=== PATIENT | female | born 1970 | race Caucasian/White ===

== ENCOUNTER 2016-09-01 06:10 | Emergency (ER) | payer OTHER ==
[2016-09-01 06:23] VITALS: BP 155/87
--- NOTE | 2016-09-01 06:36 | ERNOTE ---
Lower Extremity HPI - General Time Seen by Provider: 09/01/16 06:32 Source: patient - Immun/Allergies/Home Medications Immunizations: IMMUNIZATION HX Immunizations Up to Date Yes History of Influenza Vaccine Yes Hx Pneumococcal Vaccination No Allergies/Adverse Reactions: Allergies Allergy/AdvReac Type Severity Reaction Status Date / Time amoxicillin [Amoxicillin] Allergy Mild Hives Verified 09/01/16 06:23 acetaminophen [From Percocet] AdvReac Mild Itching Verified 09/01/16 06:23 oxycodone [From Percocet] AdvReac Mild Itching Verified 09/01/16 06:23 Home Medications: HOME MEDICATIONS Drospir/Eth Estra/Levomefol Ca [Beyaz 28 Tablet] 1 each PO DAILY 01/20/13 [Last Taken Unknown] Gabapentin [Neurontin] 300 mg PO TID 01/20/13 [Last Taken Unknown] Multivitamin [Multiple Vitamins] 1 each PO DAILY 01/20/13 [Last Taken Unknown] Pramipexole Di-HCl [Mirapex] 0.5 mg PO TID 01/20/13 [Last Taken Unknown] Fexofenadine/Pseudoephedrine [[place]-D 24 Hour Tablet] 1 each PO DAILY [Last Taken Unknown] - History of Present Illness Narrative: pt come in for pain in back of right knee/calf for one week. 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 The d- dimer came back today at 0.75 which is positive Review of Systems - Review of Systems Constitutional: Present: no symptoms reported EYE: Present: no symptoms reported ENT: Present: no symptoms reported Respiratory: Present: no symptoms reported Cardiology: Present: no symptoms reported Musculoskeletal: Present: See HPI - Patient's Past Medical History Patient History - Medical: No pertinent hx Patient History - Cardiac/Respiratory: No pertinent hx Patient History - Cancer: No Hx of Cancer Patient History - Surgical Procedures: Cholecystectomy, Other Patient History - Other: None LMP (females 10-50): 1 month - Social History Living Situations: home Abuse History: No History of abuse Psych History: No pertinent hx Smoking Status: Never smoker Alcohol Use: occasionally Drug Use: none - Immunizations Immunizations Up to Date: Yes Hx Pneumococcal Vaccination: No History of Influenza Vaccine: Yes Physical Exam - Physical Exam General Appearance: Present: wd/wn, alert, no apparent distress Respiratory: Present: no respiratory distress, normal breath sounds, no accessory muscle use, chest nontender, lungs clear Extremity Exam: Present: normal inspection, other - there is no redness or ecchymosis noted on inspection of the area of pain. Pt is very tender to palpation of the back of the right knee in popliteal fossa. I feel no masses or knots in the corresponding region. She has full ROM. ED Progress - Results and Orders Patient's Lab Results:: I have reviewed the patient's lab results. - Vital Signs Patient's Vital Signs:: I have reviewed the patient's vital signs. Vital Signs: Vital Signs 09/01/16 06:17 Temperature 36.7 C Pulse Rate 100 Respiratory 16 Rate Blood Pressure 155/87 O2 Sat by Pulse 100 Oximetry - Progress/Reassessment Chief Complaint: Lower Extremity Pain/ Injury Plan - Plan Plan: This patient's Ddimer was elevated but her US is negative for PE. She has NO shortness of breath or chest pains or dyspnea on exertion whatsoever and lungs are clear. she has no fatigue and my index of suspicion is very low for a PE. Will discharge home Departure Clinical Impression: Right leg pain - Departure Disposition: Home self-care Condition: Good Instructions: Muscle Strain, [id number]
[2016-09-01 06:41] LABS: INR 0.91 INR (0.90-1.10); Prothrombin Time (Patient) 9.5 Seconds (9.4-11.4)
== END 2016-09-01 07:36 | disposition home or self-care (01) ==
LOC: ER 06:10
DX: M79.604 Pain in right leg (principal)

== ENCOUNTER 2016-11-10 09:14 | Day surgery (SDC) | payer OTHER ==
[~2016-11-10 09:14] MED LIST: RINGERS SOLUTION,LACTATED 1,000 ML IV PRN; ceFAZolin SODIUM 1 GM VIAL IV PRN
[2016-11-10] MEDS ORDERED: BUPIVACAINE HCL 50 ML VIAL IJ ONE (10:35)
[2016-11-10] MEDS ORDERED: ceFAZolin SODIUM 1 GM VIAL IV ONE (10:40)
--- NOTE | 2016-11-10 11:15 | OR ---
Operative Report - Dictated Report Narrative: Date: 11/10/2016 Physician: Gordon Wick M.D. Visual C Developer: Bruce Knight PA-C Preoperative diagnosis: Left carpal tunnel syndrome Postoperative diagnosis: Left carpal tunnel syndrome Procedure: Endoscopic left carpal tunnel release Anesthesia: MAC plus local Complications: None Estimated blood loss: Minimal Tourniquet time: 8 Minutes at 250 mmHg Specimens: None Retained implants: None Drains: None Indications: Mrs. Mckenzie Is a 46-year-old female who has been followed in my clinic with complaints of carpal tunnel syndrome. Physical exam as well as diagnostic testing showed compression of the median nerve compatible with carpal tunnel syndrome. Conservative measures have failed including but not limited to activity modification, medications, and/or bracing. The risks, benefits, and alternatives were discussed in clinic. The risks being bleeding, infection, nerve, tendon, blood vessel injury, persistent pain, wound competitions, weakness, palm pain, need for additional procedures, and persistent symptoms. Consent was obtained in the clinic. Procedure: After marking the correct extremity in the preoperative holding area, a timeout was performed in the operating room. IV antibiotics consisting of Ancef were administered prior to the procedure. A well-padded tourniquet was applied to the operative upper arm. The arm was exsanguinated and the tourniquet was inflated to 250 mmHg. 0.5% Marcaine without epinephrine was infused into the projected portal sites. Using Loupe magnification, a transverse incision was made in the proximal wrist flexion crease just ulnar to the ulnar to the palmaris longus tendon or in line with approximately the ring finger. Blunt dissection and hemostasis with bipolar cautery was utilized down to the forearm fascia. The forearm fascia was split longitudinally just ulnar to the palmaris longus exposing the entry into the carpal tunnel. A Allons was placed under the transverse carpal ligament elevating the soft tissues under the dorsal aspect of the transverse carpal ligament. This was confirmed to be under the transverse carpal ligament based on the corrugated nature of the tissue. Once we had removed soft tissues from the transverse carpal ligament, a blunt trocar and cannula was introduced under the transverse carpal ligament exiting the palm through a kate incision. The hand was then placed in a extension holding device and the camera was introduced into the cannula. A probe was utilized in order to ensure that all soft tissues were elevated off the dorsal aspect of the transverse carpal ligament and ensuring that all tissues were running transversely. No vascular or neurologic tissues were visualized. The push, followed by probe, followed by hook blades was utilized to transect the distal one half of the transverse carpal ligament. This allowed for ingress of fat. The camera was then placed distally looking proximally, and the proximal one half of the transverse carpal ligament was transected using the hook blade. This again allowed for ingress of fat. The probe blade was utilized in order to release any additional remaining fibers. Once it was felt that the transverse carpal ligament was completely transected, the blunt trocar was reintroduced into the trocar and removed in whole. A Ragnell was utilized in order to visualize the carpal tunnel ensuring that the transverse carpal ligament was completely released using a Allons. The distal forearm fascia was released ensuring that the median nerve was completely decompressed utilizing tenotomy scissors. Once it was felt that all the tissues overlying the median nerve were completely released, the wounds were thoroughly irrigated with saline which passed freely from the proximal to distal portal holes. Tourniquet was deflated and hemostasis was obtained with pressure as well as bipolar cautery. Once bleeding had resolved and there was no excessive bleeding , the wounds were closed with interrupted nylon. Xeroform, 4 x 4's, soft roll, and a well-padded dorsal short arm wrist splint was applied, and the patient was awoken and transferred to the postanesthesia care unit in stable condition. All sponge, needle, blade, and instrument counts were correct prior to closing the wounds. Additional 0.5% Marcaine without epinephrine was infused into the skin edges for pain control.
[2016-11-10] MEDS ORDERED: RINGERS SOLUTION,LACTATED 1,000 ML IV PRN (11:43)
[2016-11-10 12:01] VITALS: BP 105/60
== END 2016-11-10 09:15 | disposition home or self-care (01) ==
LOC: AMB 09:14
PROVIDERS: ATTEND Orthopaedic Surgery
PROC: 01N54ZZ Release Median Nerve, Percutaneous Endoscopic Approach (ICD-10-PCS; principal; 2016-11-10 11:10)
DX: G56.02 Carpal tunnel syndrome, left upper limb (principal); F41.1 Generalized anxiety disorder; Z68.39 Body mass index [BMI] 39.0-39.9, adult